=== PATIENT | female | born 1995 | race Caucasian/White ===

== ENCOUNTER 2017-10-26 12:27 | Emergency (ER) | payer OTHER ==
[~2017-10-26] VITALS: Ht 165.1 cm; Wt 62.1 kg
[2017-10-26 12:37] VITALS: Ht 165.1 cm; Wt 62.1 kg
[2017-10-26 14:02] VITALS: BP 133/76
== END 2017-10-26 14:02 | disposition home or self-care (01) ==
LOC: ED 12:27
DX: T49.8X5A Adverse effect of other topical agents, initial encounter (principal); Y92.89 Other specified places as the place of occurrence of the external cause

== ENCOUNTER 2018-04-16 20:23 | Emergency (ER) | payer OTHER ==
[~2018-04-16] VITALS: Ht 165.1 cm; Wt 62.1 kg
[2018-04-16 21:01] VITALS: Ht 165.1 cm; Wt 62.1 kg
[2018-04-16 23:33] VITALS: BP 115/75
== END 2018-04-16 23:33 | disposition home or self-care (01) ==
LOC: ED 20:23
DX: M25.774 Osteophyte, right foot (principal)